=== PATIENT | female | born 1990 | race Caucasian/White ===

== ENCOUNTER 2021-03-26 18:18 | Emergency (ER) | payer OTHER ==
[2021-03-26 19:00] VITALS: TEMP 97.7; BMI 27.4
[2021-03-26] MEDS ORDERED: LACTATED RINGERS SOLUTION 1000 ML INFUS.BAG IV ONE ×2 (19:39→21:00)
[2021-03-26 20:41] LABS: BASO % 0.5 % (0-2.0); EOS % 0.1 % (0-4.5); HEMATOCRIT 32.2 % (32.4-45.2); HEMOGLOBIN 10.6 GM/dL (10.7-15.3); LYMPH % 7.1 % (8-40); MCHC 32.8 g/dl (32.0-36.0); MEAN CELL VOLUME 76.1 fl (80-96); MONO % 4.7 % (3.8-10.2); NEUT % 87.6 % (42.8-82.8); PLATELET COUNT 507 10^3/uL (134-434); RBC 4.23 M/mm3 (3.60-5.2); RDW 16.1 % (11.6-15.6); WHITE BLOOD COUNT 16.4 K/mm3 (4.0-10.0)
[2021-03-26 20:49] LABS: INR 0.98 (0.83-1.09); PROTHROMBIN TIME (PATIENT) 11.9 SEC (9.7-13.0)
[2021-03-26 20:52] LABS: ACTIVATED PTT 26.2 SECONDS (25.2-36.5)
[2021-03-26 20:53] LABS: CHLORIDE 109 mmol/L (98-107); SODIUM 140 mmol/L (136-145)
[2021-03-26 20:55] LABS: CALCIUM 8.7 mg/dL (8.5-10.1)
[2021-03-26 20:56] LABS: ALBUMIN 3.6 g/dl (3.4-5.0); ANION GAP 7 MMOL/L (8-16); BLOOD UREA NITROGEN 7.8 mg/dL (7-18); CO2 25 mmol/L (21-32); GLUCOSE,RANDOM 115 mg/dL (74-106); MAGNESIUM 2.1 mg/dL (1.8-2.4)
[2021-03-26 20:59] LABS: CREATININE 0.6 mg/dL (0.55-1.3); SGOT/AST 68 U/L (15-37); SGPT/ALT 54 U/L (13-61)
[2021-03-26 21:01] LABS: BILIRUBIN,TOTAL 0.6 mg/dL (0.2-1); TOT PROT 7.1 g/dl (6.4-8.2)
[2021-03-26 21:02] LABS: ALK PHOS 135 U/L (45-117); N-TERMINAL BNP 32.8 pg/ml (5-125)
[2021-03-26 22:38] LABS: PH,URINE 8.5 (5.0-8.0); URINE APPEARANCE Error; URINE BILIRUBIN NEGATIVE (NEGATIVE); URINE COLOR YELLOW; URINE GLUCOSE (UA) NEGATIVE (NEGATIVE); URINE KETONE NEGATIVE (NEGATIVE); URINE LEUK ESTERASE NEGATIVE (NEGATIVE); URINE NITRITE NEGATIVE (NEGATIVE); URINE PROTEIN NEGATIVE (NEGATIVE); URINE UROBILINOGEN 0.2 mg/dL (0.2-1.0)
[2021-03-26] MEDS ORDERED: DOXYCYCLINE HYCLATE 100 MG CAPSULE PO ONE (23:55)
[2021-03-26] MEDS ORDERED: AMOXICILLIN 500 MG CAPSULE (FP) PO ONE (23:59)
[2021-03-27 00:02] VITALS: BP 104/41
[2021-03-27] MEDS ORDERED: AMOXICILLIN 500 MG CAPSULE (FP) ONE (00:03)
[2021-03-27 00:26] VITALS: PULSE 98
[2021-03-27 01:15] LABS: METHADONE, UR NEGATIVE (NEGATIVE); PHENCYCLIDINE,URINE NEGATIVE (NEGATIVE); URINE BARBITURATES NEGATIVE (NEGATIVE); URINE BENZODIAZEPINES NEGATIVE (NEGATIVE)
[2021-03-27 01:17] LABS: OPIATES, URI NEGATIVE (NEGATIVE)
[2021-03-27 01:23] LABS: COCAINE, UR NEGATIVE (NEGATIVE); URINE AMPHETAMINES NEGATIVE (NEGATIVE)
== END 2021-03-27 00:30 | disposition home or self-care (01) ==
LOC: JER 18:18
DX: R00.2 Palpitations (principal); R91.8 Other nonspecific abnormal finding of lung field
CPT/HCPCS: 36415; 71046-TC-FY; 71275-TC; 80053; 80307; 81003; 82550; 83735; 83880; 84439; 84443; 84484; 84703; 85025; 85379; 85610; 85730; 87086; 93005; 93010; 99285-25; Q9967